=== PATIENT | female | born 1970 | race American Indian/Alaskan Native ===

== ENCOUNTER 2021-07-26 05:46 | Day surgery (SDC) | payer MEDICAID, OTHER ==
[2021-07-23 09:41] LABS: Basophils % (Auto) 0.5 % (0.0-1.8); Eosinophils # (Auto) 0.1 K/mm3 (0.0-0.4); Eosinophils % (Auto) 1.4 % (0.0-4.3); Hemoglobin 12.2 gm/dl (10.1-14.3); Lymphocytes # (Auto) 1.6 K/mm3 (1.2-5.4); Lymphocytes % (Auto) 23.3 % (13.4-35.0); Mean Corpuscular HGB Conc 33 % (30-34); Mean Corpuscular Volume 76 fl (79-97); Monocytes # (Auto) 0.6 K/mm3 (0.0-0.8); Monocytes % (Auto) 9.3 % (0.0-7.3); Platelet Count 313 K/mm3 (140-440); Red Blood Count 4.86 M/mm3 (3.65-5.03); Red Cell Distribution Width 17.4 % (13.2-15.2)
--- NOTE | 2021-07-23 09:49 | Anesthesia Consultation ---
Anesthesia Consult and Med Hx Date of service: 07/26/21 - Airway Anesthetic Teeth Evaluation: Good ROM Head & Neck: Adequate Mental/Hyoid Distance: Adequate Mallampati Class: Class III Intubation Access Assessment: Possibly Difficult - Pulmonary Exam CTA: Yes - Cardiac Exam Cardiac Exam: RRR - Pre-Operative Health Status ASA Pre-Surgery Classification: ASA2 Proposed Anesthetic Plan: General Nerve Block: TAP - Pulmonary Hx Smoking: No Hx Asthma: Yes (last inhaler use 1 month ago) Hx Respiratory Symptoms: No - Cardiovascular System Hx Hypertension: No - Central Nervous System CVA: No Hx Psychiatric Problems: Yes (anxiety/depression/PTSD) - Endocrine Hx Renal Disease: No Hx Liver Disease: No Hx Insulin Dependent Diabetes: No Hx Non-Insulin Dependent Diabetes: No Hx Thyroid Disease: No - Additional Comments Anesthesia Medical History Comments: No hx anesthetic complications.
[2021-07-23 10:02] LABS: Blood Urea Nitrogen 14 mg/dL (7-17); Calcium 9.2 mg/dL (8.4-10.2); Hemolysis Index 2
[2021-07-23 10:05] LABS: BUN/Creatinine Ratio 20
--- NOTE | 2021-07-25 12:06 | History and Physical Report ---
History of Present Illness Date of examination: 07/24/21 History of present illness: Patient has been reassessed/reevaluated. H&P has been reviewed. No interval changes. This is a 50 years old female who presents with menstrual disorder. She complains of heavy bleeding, dysmenorrhea, clotting, fatigue and cramping, but denies irregular menses, mid-cycle spotting, lack of menses, history of ovarian cysts, history of thyroid disease, history of fibroids, history of PCOS, history of bleeding disorder and lightheadedness. Patient's work up has included hysterosonogram with a benign endometrial biopsy and revealed thicken endometrium. Patient's symptoms when present disrupts her normal daily activities Patient desires definitive treatment Vital Signs: Patient Profile: 50 Years Old Female LMP: 06/24/2021 Height: 64 inches Weight: 153 pounds BMI: 26.26 Temp: 97.9 degrees F BP sittin / 70 (left arm) Menstrual History: LMP (date): 06/24/2021 On BCP's at conception: no Current Method of Contraception: None Date of Last Mammogram: 2020 Date of Last Pap Smear: 09/26/2020 Past History : 6 Term Births: 4 Premature Births: 0 Living Children: 4 Para: 4 Mult. Births: 0 Prev : 0 Aborta: 2 Elect. Ab: 1 Spont. Ab: 1 Ectopics: 0 Current Allergies (reviewed today): No known allergies Past Medical History: Asthma Anxiety Depression Past Surgical History: Bilateral bunion Cyst removed from back(05/2020) D&C: Family History Summary: Mother - Has No Family History of Ovarvian Cancer - Entered On: 09/26/2020 Mother - Has No Family History of Breast Cancer - Entered On: 09/26/2020 Mother - Has Family History of Diabetes - Entered On: 09/26/2020 Mother - Has Family History of Hypertension - Entered On: 09/26/2020 Mother - Has Family History of Coronary Heart Disease - Entered On: 09/26/2020 Sister - Has Colon Cancer - Entered On: 09/26/2020 Mother - Has Kidney/Renal Disease - Entered On: 09/26/2020 Mother - Has Heart Disease - Entered On: 09/26/2020 Mother - Has Hypertension - Entered On: 09/26/2020 Mother - Has Diabetes - Entered On: 09/26/2020 Social History: Marital Status: Children: 4 Occupation: Certified relationship athletic coach Smoking History: Patient has never smoked. Risk Factors Tobacco use: never Passive smoke exposure: no Alcohol use: yes Type: social HIV high risk behavior: no Caffeine use (drinks/day): 0 Exercise (times/week): 3 Seatbelt use: 100 % BILINGUAL RECRUITER History Operations: bilateral bunion Cyst removed from back(05/2020) D&C: Abnormal PAP: negative Uterine Anomaly: negative Infection History HIV Risk Eval: no Personal hx. of genital herpes: no Hx of STD: chlamydia Review of Systems General Complains of fatigue. Denies fever, chills, sweats, anorexia, weakness, malaise, weight loss and sleep disorder. Complains of menorrhagia, pelvic pain and painful periods. Denies vaginal discharge, incontinence, dysuria, hematuria, urinary frequency, amenorrhea, abnormal vaginal bleeding, genital sores, decreased libido, painful sex, urinary urgency, hot flashes, vaginal dryness, vaginal itching and vaginal odor. CV Denies chest pains, palpitations, syncope, dyspnea on exertion, orthopnea, PND and peripheral edema. Resp Denies cough, dyspnea at rest, excessive sputum, hemoptysis, wheezing and pleurisy. GI Denies nausea, vomiting, diarrhea, constipation, change in bowel habits, abdominal pain, melena, hematochezia, jaundice, gas/bloating, indiges tion/heartburn, dysphagia and odynophagia. Breast Denies left breast lump, right breast lump, nipple discharge, bloody discharge from nipple, breast pain, abnormal mammogram and breast enlargement. Psych Complains of anxiety. Denies depression, irritability and mood swings. Past History Past Medical History: other (See HPI for details) Past Surgical History: Other (See HPI for details) Social history: full code, other (See HPI for details) Family history: other (See HPI for details) Medications and Allergies Allergies Allergy/AdvReac Type Severity Reaction Status Date / Time No Known Allergies Allergy Unverified 02/11/18 11:36 Home Medications Medication Instructions Recorded Confirmed Last Taken Type Albuteral Inhaler 1 dose INHALATION PRN 07/20/21 Unknown History Dextroamphetamine/Amphetamine 30 mg PO DAILY 07/20/21 07/26/2107/23/22 09:00 History [Adderall] Vitamin D (Nf) 50,000 units PO 1XW 07/20/21 07/26/21 07/24/21 09:00 History Active Meds: Active Medications Acetaminophen (Acetaminophen 500 Mg Tab) 1,000 mg PO PREOP ANGELICA Stop: 07/26/21 21:00 Celecoxib (Celecoxib 200 Mg Cap) 200 mg PO PREOP NR Stop: 07/26/21 21:00 Fentanyl (Fentanyl 100 Mcg/2 Ml Inj) 100 mcg IV ONCE PRN PRN Reason: sedation for nerve block Stop: 07/26/21 21:00 Gabapentin (Gabapentin 300 Mg Cap) 300 mg PO PREOP NR Stop: 07/26/21 21:00 Lactated Ringer's (Lactated Ringers) 1,000 mls @ 100 mls/hr IV DIRECT ANGELICA Stop: 07/26/21 23:59 Methocarbamol 1,000 mg/ Sodium (Chloride) 260 mls @ 250 mls/hr IV PREOP ANGELICA Stop: 07/26/21 23:59 Cefazolin Sodium (Ancef/Sterile Water 2 Gm/20 Ml) 2 gm in 20 mls @ 80 mls/hr IV PREOP NR; Protocol Stop: 07/26/21 20:00 Midazolam HCl (Midazolam 2 Mg/2 Ml Inj) 2 mg IV PREOP NR Stop: 07/26/21 21:00 Scopolamine (Scopolamine Transdermal Patch 72 Hr) 1 each TD PREOP NR Stop: 07/26/21 21:00 Review of Systems Constitutional: other (See HPI for details) Exam - Physical Exam Narrative exam: HEENT: normocephalic, no lesions or deformities Skin no significant abnormal lesions or rashes .Tatoo(s) are present Chest: respiratory effort normal, clear to auscultation CV: regular, normal S1-S2, no murmur, no rub, no gallop Abdomen: normal bowel sounds, soft, nontender, no HSM Neuro: no gross anomalities Extremities: no clubbing, cyanosis, or edema BILINGUAL RECRUITER Exams Vulva/Vagina: normal appearance, discharge present, no odor or lesions. No evidence of cystocele or rectocele. Cervix: No lesions; no cervical motion tenderness Uterus: enlarged 10 to 12 weeks in size Tender to palpation Adnexae: no masses or tenderness Rectovaginal: exam defered - Constitutional Vitals: Temp Pulse Resp BP Pulse Ox 98 F 79 16 110/78 100 07/23/21 09:25 07/23/21 09:25 07/23/21 09:25 07/23/21 09:25 07/23/21 09:25 Results - Labs CBC & Chem 7: 07/23/21 09:30 07/23/21 06:00 Assessment and Plan - Patient Problems (1) Menometrorrhagia Current Visit: No Status: Acute Plan to address problem: Patient's symptoms when present disrupts her normal daily activities Medical and surgical treatment options discussed Conservative medication therapies have failed. Patient declined endometrial ablation due to chronic pain. Patient desires definitive treatment. Patient desires hysterectomy Discussed risks and benefits of laparotomy, laparoscopy, vaginal and robotic assisted approaches for hysterectomies. Patient desires robotic assisted total hysterectomy. Consent reviewed and signed . The risks and alternatives for this surgery were reviewed with the patient. Discuss the risks of the surgery including infection, bleeding possibly heavy enough to require a blood transfusion, possible damage to bowel, bladder or ureter. Patient understand that this surgery with make her sterile.Patient understands if her ovaries are removed she will become menopausal. Also if unable to complete robitcally a laparotomy may be required (2) Dysmenorrhea Current Visit: No Status: Acute (3) Chronic pelvic pain in female Current Visit: No Status: Chronic (4) Asthma Current Visit: No Status: Chronic Qualifiers: Asthma severity: mild (5) Anxiety Current Visit: No Status: Chronic
[2021-07-26] MEDS ORDERED: SCOPOLAMINE TRANSDERMAL PATCH 72 HR TD NR (06:00)
[2021-07-26] MEDS ORDERED: ACETAMINOPHEN 500 MG TAB PO SCH (06:00)
[2021-07-26] MEDS ORDERED: GABAPENTIN 300 MG CAP PO NR (06:00)
[2021-07-26] MEDS ORDERED: methOCARBAMOL 1,000 MG in SODIUM CHLORIDE 0.9% 250ML 250 ML IV SCH (06:00)
[2021-07-26] MEDS ORDERED: fentaNYL 100 MCG/2 ML INJ IV PRN (06:00)
[2021-07-26] MEDS ORDERED: MIDAZOLAM 2 MG/2 ML INJ IV NR (06:00)
[2021-07-26] MEDS ORDERED: CELECOXIB 200 MG CAP PO NR (06:00)
[2021-07-26] MEDS ORDERED: LACTATED RINGERS 1,000 ML IV SCH (06:00)
[2021-07-26] MEDS ORDERED: ceFAZolin/Water 2 GM/20 ML 2 GM/20 ML SYRINGE IV NR (07:00)
[2021-07-26] MEDS ORDERED: BUPIVACAINE-EPINEPHRINE/PF 0.25%-1:200,000 (30 ML) VIAL INFILTRATI ONE (07:04)
[2021-07-26] MEDS ORDERED: dexAMETHasone 4 MG/ML VIAL ONE (07:04)
[2021-07-26] MEDS ORDERED: propofoL 200 MG/20 ML VIAL IV ONE (07:06)
[2021-07-26] MEDS ORDERED: KETAMINE/STERILE WATER 50 MG/ML SYRINGE ONE (07:06)
[2021-07-26] MEDS ORDERED: LIDOCAINE MPF (2%) 20 MG/1 ML VIAL 5 ML ONE (07:16)
[2021-07-26] MEDS ORDERED: KETOROLAC 30 MG/1 ML INJ ONE (07:16)
[2021-07-26] MEDS ORDERED: ONDANSETRON 4 MG/2 ML INJ ONE (07:16)
[2021-07-26] MEDS ORDERED: ROCURONIUM 50 MG/5 ML INJ IV ONE (07:19)
[2021-07-26] MEDS ORDERED: dexAMETHasone 20 MG/5 ML VIAL ONE (07:19)
--- NOTE | 2021-07-26 07:27 | Anesthesia Day of Surgery ---
Anesthesia Day of Surgery - Day of Surgery Patient Examined: Yes Patient H&P Reviewed: Yes Patient is NPO: Yes
[2021-07-26] MEDS ORDERED: NEOMY 40 MG/POLYMYXIN B 200,000 UNITS/ML (GU) AMPULE IR ONE ×2 (08:00→08:51)
[2021-07-26] MEDS ORDERED: oxyCODONE /ACETAMINOPHEN 5-325MG TAB PO PRN ×2 (08:00→10:24)
[2021-07-26] MEDS ORDERED: HYDROmorphone 0.5 MG/0.5 ML INJ IV PRN (08:00)
[2021-07-26] MEDS ORDERED: ONDANSETRON 4 MG/2 ML INJ IV PRN (08:00)
[2021-07-26] MEDS ORDERED: ePHEDrine SULFATE 50 MG/1 ML INJ ONE (08:17)
[2021-07-26] MEDS ORDERED: SODIUM CHLORIDE 0.9% IRR 1,500 ML BOTTLE IR ONE (08:51)
[2021-07-26] MEDS ORDERED: SODIUM CHLORIDE 0.9% IRRIG SOLN 2000 ML IR ONE (08:52)
[2021-07-26] MEDS ORDERED: SUGAMMADEX SODIUM 200 MG/2 ML VIAL IV ONE (09:53)
[2021-07-26] MEDS ORDERED: NEOSTIGMINE 10MG/10 ML INJ MDV ONE (09:55)
[2021-07-26] MEDS ORDERED: GLYCOPYRROLATE 0.4 MG/2 ML INJ ONE (09:55)
[2021-07-26] MEDS ORDERED: SODIUM CHLORIDE P/F VIAL 10 ML 10 ML ONE (09:59)
[2021-07-26] MEDS ORDERED: LACTATED RINGERS 1,000 ML ONE (09:59)
[2021-07-26] MEDS ORDERED: IBUPROFEN 600 MG TAB PO PRN (10:24)
[2021-07-26] MEDS ORDERED: HYDROcodone/ACETAMINOPHEN 5-325 MG TAB PO PRN (10:24)
--- NOTE | 2021-07-26 10:45 | Operative Report ---
Operative Report Operative Report: Date of procedure: July 26, 2021 Pre-operative diagnosis: Metromenorrhagia, dysmenorrhea and chronic pelvic pain Post-operative diagnosis: Same plus small leiomyoma and right ovarian cysts Procedure name(s):Robotic Assisted Total Hysterectomy with bilateral salpingectomy and drainage of a right ovarian cyst Surgeon: Dom Mcdonough MD Integrated Circuit Layout Designer: Launn Wilcox MD Anesthesia: General EBL: 150 cc Complications: None Findings: Uterus approximately 10 to 12 weeks size with a small posterior leiomyomata seen normal-appearing left adnexa patient with a functional cyst right ovary approximately 3 cm in diameter Specimen(s): Uterus with cervix and bilateral fallopian tubes Procedure: Patient was brought to the operating room where general anesthesia was induced without difficulty. Patient was placed in the dorsal lithotomy position. Prepped and draped in the usual sterile manner for robotic procedure. Sandhu catheter was placed without difficulty. Speculum was placed in the vagina. A medium V-Care Uterine manipulator was placed without difficulty. Attention was now switched to the patient's abdomen. A vertical supra-umbilicus incision was made with a scalpel. A 10-12 trocar was placed in this incision under direct visualization. Intra-abdominal placement was verified with no evidence of internal organ damage. The patient was insufflated approximately 3-1/2 L of CO2 gas. She was placed in Trendelenburg position. The patient pelvic findings were noted as above. It was determined that the patient was a candidate for robotic procedure. Three incisions were placed one each on both sides the umbilical incision at about 8 cm and 1 on the left lower quadrant incisions were made for robotic trocars. Each robotic trocar was placed under direct visualization with no evidence of internal organ damage. One 5 mm trocar was placed 2 fingerbreadths above the right iliac crest. A 5 mm camera was placed in the right lower quadrant trocar, the 10-12 trocar was removed and a Keenan Aly laparoscopic port closure device was placed through this incision under direct visualization with no evidence of internal organ damage. The camera was then replaced into this port. At this time the patient was placed in extreme Trendelenburg. The da Katarina robot was then docked on the patient's left side. The trocars connected to the robot appropriately robotic instruments were placed under direct visualization no evidence of internal organ damage.. At this time I took my place under the robotic operating thornton. The ovarian cyst was punctured with the robotic scissors draining clear fluid. Starting on the patient's right side the ureter was identified and found to be out of the operative field. Using the robotic vessel sealer the mesosalpinx under the fallopian tube were cauterized and cut starting from the distal end. Utero- ovarian complex was then cauterized and cut. This was followed by cauterizing and cutting the right fallopian tube and right round ligament. The broad ligament was then opened. The bladder flap was formed anteriorly. The posterior broad ligament was then excised. The uterine vessels were skeletonized. The ureter was clearly seen out of the operative field. The bladder was pushed away from the anterior uterus. Attention was then switched to the patient's left side. The same procedure was repeated on the left side with perform the salpingectomy followed by isolating the uterine vessels. The bladder flap was finished from the left side. After inspecting the bladder flap to insured no evidence of bladder injury, the colpotomy was then started. Incision started at 6:00 until the V-Care could be seen. This incision was extended from 6:00 to approximately 9:00 approaching the left uterine vessels. Then from 6:00 to approximately 3:00 approach in the right uterine vessels. Then colpotomy was started anteriorly ensuring that the bladder was operative field and cutting down into the V care was seen in this incision was extended starting from 12:00 to approach in the left uterine vessels. These vessels were then skeletonized further. The left uterine vessels were then cauterized and cut using the vessel sealer with good hemostasis. The anterior colpotomy was then extended from 12:00 to approaching the right uterine vessels. The right uterine vessels were then skeletonized. The right uterine vessels were then cauterized and cut again using the vessel sealer. At this time colpotomy was completed with no evidence of adjacent organ damage. The drilling assistant remove the uterus from through the colpotomy site. The vaginal cuff was irrigated and cauterized and found to be hemostatic. The cuff was closed with roboticly using 0 V- Lock suture. This closure was hemostatic after irrigation and Bovie. All pedicles were inspected and found to be hemostatic. The ureters were identified bilaterally and found to be functioning normal. The patient had clear urine in the Sandhu catheter with no evidence of mixture with blood. All instruments were then removed. The large trocar site was closed in layers 2-0 Vicryl and 4-0 Monocryl. The smaller incisions were closed subcuticularly with 4-0 Monocryl. Dermabond was placed over the skin incisions. Patient's Sandhu catheter was removed. The patient tolerated procedure well. She was awakened in the operating room and accompanied to the recovery room in good condition.
--- NOTE | 2021-07-26 14:42 | Short Stay Summary ---
Short Stay Documentation Date of service: 07/26/21 - History Principal diagnosis: Metromenorrhagia, dysmenorrhea and chronic pelvic pain H&P: dictated Past Medical History: other (See HPI for details) Past Surgical History: Other (See HPI for details) Social history: full code, other (See HPI for details) - Allergies and Medications Current Medications: Allergies No Known Allergies Allergy (Unverified 02/11/18 11:36) Home Medications Medication Instructions Recorded Confirmed Last Taken Type Albuteral Inhaler 1 dose INHALATION PRN 07/20/21 Unknown History Dextroamphetamine/Amphetamine 30 mg PO DAILY 07/20/21 07/26/21 07/23/21 09:00 History [Adderall] Vitamin D (Nf) 50,000 units PO 1XW 07/20/21 07/26/21 07/24/21 09:00 History Active Medications Acetaminophen (Acetaminophen 500 Mg Tab) 1,000 mg PO PREOP ANGELICA Stop: 07/26/21 21:00 Last Admin: 07/26/21 06:20 Dose: 1,000 mg Hydrocodone Bitart/Acetaminophen (Hydrocodone/Acetaminophen 5-325 Mg Tab) 2 each PO Q6H PRN PRN Reason: Pain, Moderate (4-6) Celecoxib (Celecoxib 200 Mg Cap) 200 mg PO PREOP NR Stop: 07/26/21 21:00 Last Admin: 07/26/21 06:20 Dose: 200 mg Fentanyl (Fentanyl 100 Mcg/2 Ml Inj) 100 mcg IV ONCE PRN PRN Reason: sedation for nerve block Stop: 07/26/21 21:00 Last Admin: 07/26/21 07:09 Dose: 100 mcg Gabapentin (Gabapentin 300 Mg Cap) 300 mg PO PREOP NR Stop: 07/26/21 21:00 Last Admin: 07/26/21 06:20 Dose: 300 mg Hydromorphone HCl (Hydromorphone 0.5 Mg/0.5 Ml Inj) 0.5 mg IV Q10MIN PRN PRN Reason: Pain , Severe (7-10) Stop: 07/26/21 18:00 Last Admin: 07/26/21 11:05 Dose: 0.5 mg Lactated Ringer's (Lactated Ringers) 1,000 mls @ 100 mls/hr IV DIRECT ANGELICA Stop: 07/26/21 23:59 Last Admin: 07/26/21 06:35 Dose: 100 mls/hr Methocarbamol 1,000 mg/ Sodium (Chloride) 260 mls @ 250 mls/hr IV PREOP ANGELICA Stop: 07/26/21 23:59 Cefazolin Sodium (Ancef/Sterile Water 2 Gm/20 Ml) 2 gm in 20 mls @ 80 mls/hr IV PREOP NR; Protocol Stop: 07/26/21 20:00 Ibuprofen (Ibuprofen 600 Mg Tab) 600 mg PO Q6H PRN PRN Reason: Pain, Mild (1-3) Midazolam HCl (Midazolam 2 Mg/2 Ml Inj) 2 mg IV PREOP NR Stop: 07/26/21 21:00 Last Admin: 07/26/21 07:09 Dose: 2 mg Ondansetron HCl (Ondansetron 4 Mg/2 Ml Inj) 4 mg IV ONCE PRN PRN Reason: Nausea And Vomiting Stop: 07/26/21 17:00 Oxycodone/Acetaminophen (Oxycodone /Acetaminophen 5-325mg Tab) 1 tab PO ONCE PRN PRN Reason: Pain, Moderate (4-6) Stop: 07/26/21 18:00 Oxycodone/Acetaminophen (Oxycodone /Acetaminophen 5-325mg Tab) 1 tab PO Q6H PRN PRN Reason: Pain, Moderate (4-6) Scopolamine (Scopolamine Transdermal Patch 72 Hr) 1 each TD PREOP NR Stop: 07/26/21 21:00 Last Admin: 07/26/21 06:20 Dose: 1 each - Physical exam General appearance: no acute distress Integumentary: no rash HEENT: Atraumatic Lungs: Normal air movement Breasts: deferred Heart: Regular rate Gastrointestinal: hypoactive bowel sounds (Consistent with post robotic surgery), tenderness (Consisted day of surgery), distended (Consistent with post robotic surgery) Female Genitourinary: normal Rectal Exam: deferred Extremities: no ischemia - Brief post op/procedure progress note Date of procedure: 07/26/21 (See dictated operative note for details) Condition: stable - Hospital course Hospital course: Patient was admitted underwent the above him procedure without any complicati ons. Patient was admitted and underwent above procedure without complications. Her post operative extended recovery observation course was benign she was afebrile throughout. Patient had no orthostatic symptoms. Patient was tolerating regular diet and voiding without difficulty at time of discharge. Patient incision was healing well without evidence of infection. Patient will be discharged with follow-up in office in 1-2 weeks for postop check - Disposition Condition at discharge: Good Disposition: 01 HOME / SELF CARE / HOMELESS - Discharge Diagnoses (1) Menometrorrhagia Status: Acute (2) Dysmenorrhea Status: Acute (3) Chronic pelvic pain in female Status: Chronic (4) Asthma Status: Chronic Qualifiers: Asthma severity: mild (5) Anxiety Status: Chronic Short Stay Discharge Plan Activity: advance as tolerated Diet: regular Wound: open to air Additional Instructions: WOUND:OPEN TO AIR.DO NOT RUB OR SCRUB INCISION SITE.PAT DRY. NO HEAVY LIFTING. REMOVE SCOPOLAMINE PATCH BEHIND LEFT EAR IN 24-72 HOURS-USE GLOVES AND WASH HANDS. NOTHING PER VAGINA-NO SEX, NO DOUCHE, NO TAMPONS, NO BATH. MAY SHOWER AND WASH HAIR. USE SANITARY PADS. CALL FOR F/U APPT. Follow up with: PINA VANCE MD [Primary Care Provider] - 7 Days Forms: Outpatient Surgery DC Inst.
[2021-07-26 15:18] VITALS: BP 105/66
--- NOTE | 2021-07-26 15:56 | Post Anesthesia Evaluation ---
- Post Anesthesia Evaluation Patient Participated: Yes Airway Patent: Yes Stable Respiratory Function: Yes Nausea/Vomiting: No Temp > 96.8F: Yes Pain Manageable: Yes Adequeate Hydration: Yes Anesthesia Complications: No
== END 2021-07-26 15:15 | disposition home or self-care (01) ==
LOC: OR 05:46
PROVIDERS: ATTEND Obstetrics & Gynecology
DX: R10.2 Pelvic and perineal pain (principal); N92.1 Excessive and frequent menstruation with irregular cycle; N72 Inflammatory disease of cervix uteri; N94.6 Dysmenorrhea, unspecified; J45.909 Unspecified asthma, uncomplicated; F41.9 Anxiety disorder, unspecified; G43.909 Migraine, unspecified, not intractable, without status migrainosus; K21.9 Gastro-esophageal reflux disease without esophagitis; F32.9 Major depressive disorder, single episode, unspecified; Z79.899 Other long term (current) drug therapy; Z98.890 Other specified postprocedural states
CPT/HCPCS: 36415; 58571; 64488; 80048; 84703; 85025; 86850; 86900; 86901; 88307; J0690; J1100; J1815; J1885; J2250; J2405; J2704; J2710; J2800; J3010; J3490; J7050; J7120; S2900; U0003; 64450